=== PATIENT | female | born 1970 | race Caucasian/White ===

== ENCOUNTER → 2023-11-30 15:39 | Outpatient (REF) | payer OTHER, SELFPAY | LOC: RAD 15:39 | PROVIDERS: ATTENDING PHYSICIAN Registered Nurse Ambulatory Care | DX: M25.512 Pain in left shoulder (principal) | CPT/HCPCS: 72040; 73030 ==

== ENCOUNTER → 2023-12-06 12:39 | Outpatient (REF) | payer OTHER, SELFPAY | LOC: DHCBC HW 12:39 | PROVIDERS: ATTENDING PHYSICIAN Internal Medicine Cardiovascular Disease; FAMILY PHYSICIAN Internal Medicine | DX: I31.39 Other pericardial effusion (noninflammatory) (principal); I46.9 Cardiac arrest, cause unspecified | CPT/HCPCS: 93306 ==

== ENCOUNTER → 2024-01-02 06:58 | Outpatient (REF) | payer OTHER, SELFPAY | LOC: PAVMRI 06:58 | PROVIDERS: ATTENDING PHYSICIAN Internal Medicine | DX: M25.512 Pain in left shoulder (principal); M79.602 Pain in left arm; R20.2 Paresthesia of skin | CPT/HCPCS: 72141 ==

== ENCOUNTER 2024-02-20 14:58 | Outpatient (RCR) | payer OTHER, SELFPAY | END 2024-02-20 23:59 | disposition home or self-care (01) | LOC: RPT 14:58 | PROVIDERS: ATTENDING PHYSICIAN Orthopaedic Surgery Hand Surgery; FAMILY PHYSICIAN Internal Medicine | DX: M54.2 Cervicalgia (principal); M25.512 Pain in left shoulder | CPT/HCPCS: 97010; 97110; 97112; 97140; 97161 ==

== ENCOUNTER → 2024-12-26 12:10 | Outpatient (REF) | payer OTHER, SELFPAY | LOC: RAD 12:10 | PROVIDERS: ATTENDING PHYSICIAN Registered Nurse; FAMILY PHYSICIAN Internal Medicine | DX: M76.62 Achilles tendinitis, left leg (principal) | CPT/HCPCS: 73610 ==

== ENCOUNTER → 2025-03-12 16:11 | Outpatient (REF) | payer OTHER, SELFPAY | LOC: WDC 16:11 | PROVIDERS: ATTENDING PHYSICIAN Internal Medicine | DX: Z12.31 Encounter for screening mammogram for malignant neoplasm of breast (principal) | CPT/HCPCS: 77063; 77067 ==

== ENCOUNTER → 2025-03-24 12:45 | Outpatient (REF) | payer OTHER, SELFPAY | LOC: HWRCS 12:45 | PROVIDERS: ATTENDING PHYSICIAN Student in an Organized Health Care Education/Training Program; FAMILY PHYSICIAN Internal Medicine | DX: I31.39 Other pericardial effusion (noninflammatory) (principal) | CPT/HCPCS: 93306 ==

== ENCOUNTER → 2025-03-26 16:17 | Outpatient (REF) | payer OTHER, SELFPAY | LOC: RAD 16:17 | PROVIDERS: ATTENDING PHYSICIAN Nurse Practitioner Adult Health | DX: R07.81 Pleurodynia (principal) | CPT/HCPCS: 71101 ==

== ENCOUNTER → 2025-04-17 12:52 | Outpatient (REF) | payer OTHER, SELFPAY | LOC: RCS 12:52 | PROVIDERS: ATTENDING PHYSICIAN Student in an Organized Health Care Education/Training Program; FAMILY PHYSICIAN Internal Medicine | DX: R93.1 Abnormal findings on diagnostic imaging of heart and coronary circulation (principal) | CPT/HCPCS: 93017; 93350 ==

== ENCOUNTER → 2025-04-21 08:35 | Outpatient (REF) | payer OTHER, SELFPAY | LOC: MRI 08:35 | PROVIDERS: ATTENDING PHYSICIAN Student in an Organized Health Care Education/Training Program; FAMILY PHYSICIAN Internal Medicine | DX: I31.39 Other pericardial effusion (noninflammatory) (principal); R93.1 Abnormal findings on diagnostic imaging of heart and coronary circulation | CPT/HCPCS: 75561; 75565; A9585 ==

== ENCOUNTER → 2025-05-08 10:34 | Outpatient (REF) | payer OTHER, SELFPAY | LOC: RAD 10:34 | PROVIDERS: ATTENDING PHYSICIAN Nurse Practitioner Adult Health | DX: Z78.0 Asymptomatic menopausal state (principal); Z87.81 Personal history of (healed) traumatic fracture; E55.9 Vitamin D deficiency, unspecified | CPT/HCPCS: 77080 ==

== ENCOUNTER → 2025-06-24 16:20 | Outpatient (REF) | payer OTHER, SELFPAY | LOC: REG 16:20 | PROVIDERS: ATTENDING PHYSICIAN Nurse Practitioner Adult Health; FAMILY PHYSICIAN Internal Medicine | DX: M54.50 Low back pain, unspecified (principal) | CPT/HCPCS: 72110 ==